=== PATIENT | male | born 1995 | race Asian ===

== ENCOUNTER 2017-12-24 20:12 | Emergency (ER) | payer BC ==
[2017-12-24] MEDS ORDERED: predniSONE 20 MG TABLET PO STA (23:18)
[2017-12-24] MEDS ORDERED: diphenhydrAMINE 25 MG CAPSULE PO STA (23:23)
--- NOTE | 2017-12-24 23:25 | ED Physician Documentation ---
History of Present Illness - Stated complaint Stated Complaint: HIVES - Chief complaint Chief Complaint: Allergic Rx - History obtained from History obtained from: Patient - History of Present Illness Timing: Today, How many hours ago (12) Pain level max: 0 Pain level now: 0 Improved by: benadryl Worsened by: nothing - Additonal information Additional information: Patient is a 22-year-old male who presents to the emergency department with diffuse urticaria today. Unclear etiology. Denies any new soaps, detergents, medications, travel, new foods. 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 Took Benadryl earlier today. Has increased hives and itching tonight. No trouble breathing. No throat swelling. No wheezing. Review of Systems Constitutional: denies: Fever, Chills Ears: denies: Ear pain Nose: denies: Rhinorrhea / runny nose, Congestion Throat: denies: Sore throat Cardiac: denies: Chest pain / pressure Respiratory: denies: Dyspnea, Cough GI: denies: Nausea, Vomiting, Diarrhea Musculoskeletal: denies: Neck pain, Back pain Neurologic: denies: Headache PD PAST MEDICAL HISTORY - Past Medical History Past Medical History: No - Past Surgical History Past Surgical History: No - Present Medications Home Medications: Ambulatory Orders Medication Instructions Recorded Confirmed predniSONE [Prednisone] 40 mg PO DAILY #10 tablet 12/24/17 - Allergies Allergies/Adverse Reactions: Allergies Allergy/AdvReac Type Severity Reaction Status Date / Time aspirin Allergy Edema Verified 12/24/17 20:30 ibuprofen Allergy Edema Verified 12/24/17 20:30 - Living Situation Living Situation: reports: With family Living Arrangement: reports: At home - Social History Does the pt have substance abuse?: No - Family History Family history: reports: Non contributory PD ED PE NORMAL - Vitals Vital signs reviewed: Yes - General General: Alert and oriented X 3, No acute distress - HEENT HEENT: Moist mucous membranes - Neck Neck: Supple, no meningeal sign - Cardiac Cardiac: RRR, Strong equal pulses - Respiratory Respiratory: No respiratory distress, Clear bilaterally - Abdomen Abdomen: Soft, Non tender, Non distended - Derm Derm: Warm and dry - Extremities Extremities: Other (Diffuse urticaria over the bilateral upper extremities, abdomen, back, chest, proximal thighs and back of the knees. These all hillary easily.) - Neuro Neuro: Alert and oriented X 3 Results - Vitals Vitals: Vital Signs - 24 hr 12/24/17 20:27 Temperature 36.4 C L Heart Rate 95 Respiratory 18 Rate Blood Pressure 146/87 H O2 Saturation 100 Oxygen O2 Source Room air PD MEDICAL DECISION MAKING - ED course Complexity details: considered differential, d/w patient ED course: Patient is a 22-year-old male with hives. Treated with Benadryl and prednisone here. Will place on prednisone at home. Lungs are clear to auscultation bilaterally. No stridor or wheezing. No anaphylaxis. Unclear what he is allergic to. Will follow up with his doctor for further testing. Patient counseled regarding signs and symptoms for which I believe and urgent re- evaluation would be necessary. Patient with good understanding of and agreement to plan and is comfortable going home at this time This document was made in part using voice recognition software. While efforts are made to proofread this document, sound alike and grammatical errors may occur. - Sepsis Event Vital Signs: Vital Signs - 24 hr 12/24/17 20:27 Temperature 36.4 C L Heart Rate 95 Respiratory 18 Rate Blood Pressure 146/87 H O2 Saturation 100 Oxygen O2 Source Room air Departure - Departure Disposition: 01 Home, Self Care Clinical Impression: Urticaria Condition: Good Instructions: ED Urticaria Follow-Up: your,doctor in 3 days if not better [Other] Prescriptions: predniSONE [Prednisone] 40 mg PO DAILY #10 tablet Comments: You can continue to take Benadryl at home as well. Take all steroids until gone. Return if you worsen, especially if you develop difficulty breathing. It is unclear what is causing the allergic reaction.
[2017-12-24 23:41] VITALS: BP 150/91
== END 2017-12-24 23:41 | disposition home or self-care (01) ==
LOC: ED 20:12
DX: L50.9 Urticaria, unspecified (principal)
CPT/HCPCS: 99283; A9270; J7512